=== PATIENT | female | born 1955 | race Caucasian/White ===

== ENCOUNTER → 2016-11-23 | Outpatient (CLI) | payer OTHER ==
--- NOTE | 2016-11-23 15:24 | US ---
EXAMINATION TYPE: US pelvic complete DATE OF EXAM: 11/23/2016 3:10 PM COMPARISON: NONE CLINICAL HISTORY: R10.2 Pelvic Pain. Pt states feeling pelvic pressure TECHNIQUE: Transabdominal (TA) Date of LMP: Pt states age 41's EXAM MEASUREMENTS: Uterus: 5.8 x 2.7 x 3.1 cm Endometrial Stripe: 0.3 cm Right Ovary: 2.0 x 1.3 x 1.2 cm Left Ovary: 2.4 x 1.5 x 1.1 cm TECHNOLOGIST IMPRESSION: wnl 1. Uterus: Anteverted Heterogeneous with small calcification at fundus= 0.9 x 0.7 x 0.5 cm 2. Endometrium: wnl 3. Right Ovary: wnl 4. Left Ovary: wnl 5. Bilateral Adnexa: wnl 6. Posterior cul-de-sac: wnl IMPRESSION: 1. Small calcification uterine fundus may reflect underlying leiomyomatous change.
--- NOTE | 2016-11-26 11:39 | MM ---
Reason for exam: screening (asymptomatic). Last mammogram was performed 1 year ago. History: Family history of breast cancer in paternal aunt. Physical Findings: A clinical breast exam by your physician is recommended on an annual basis and results should be correlated with mammographic findings. MG Screening Mammo w CAD Bilateral CC and MLO view(s) were taken. Prior study comparison: November 15, 2015, bilateral MG 3d screening mammo w/cad. June 02, 2014, bilateral MG screening mammo w CAD. The breast tissue is heterogeneously dense. This may lower the sensitivity of mammography. No significant changes when compared with prior studies. ASSESSMENT: Benign, BI-RAD 2 RECOMMENDATION: Routine screening mammogram of both breasts in 1 year.
== END | disposition home or self-care (01) ==
LOC: RADUSWWP 14:55
PROVIDERS: ATTEND Family Medicine
DX: Z12.31 Encounter for screening mammogram for malignant neoplasm of breast (principal); N85.8 Other specified noninflammatory disorders of uterus; R10.2 Pelvic and perineal pain
CPT/HCPCS: 76856; G0202

== ENCOUNTER → 2017-02-14 | Outpatient (CLI) | payer OTHER ==
--- NOTE | 2017-02-14 15:00 | XR ---
EXAMINATION TYPE: XR cervical spine comp DATE OF EXAM: 02/14/2017 2:53 PM COMPARISON: 03/06/2010 HISTORY: Pain. TECHNIQUE: Four views are submitted. FINDINGS: The odontoid is intact. There are no compression deformities. The prevertebral soft tissue structur es are within normal limits. Severe degenerative disc disease and hypertrophic changes C5-C6. Modera te changes C4-C5 and C6-C7. Soft tissue ossification posteriorly. Foraminal encroachment C5-C6 bilaterally and C4-C5 on the left. IMPRESSION: 1. Multilevel degenerative disc disease with severe changes C5-C6. Consider MRI follow-up.
--- NOTE | 2017-02-14 15:01 | XR ---
EXAMINATION TYPE: XR thoracic spine complete DATE OF EXAM: 02/14/2017 2:53 PM COMPARISON: NONE HISTORY: Back pain Alignment is anatomic. There is no compression deformities. There is moderate multilevel degenerativ e disc disease throughout the thoracic spine with the most marked changes involving the mid thoracic spine. Mild hypertrophic changes are seen. Surgical clips in the right upper quadrant of the abdomen. IMPRESSION: 1. Multilevel degenerative disc disease.
== END | disposition home or self-care (01) ==
LOC: RADXRMAIN 14:17
PROVIDERS: ATTEND Family Medicine
DX: M51.34 Other intervertebral disc degeneration, thoracic region (principal); M50.322 Other cervical disc degeneration at C5-C6 level
CPT/HCPCS: 72050; 72072

== ENCOUNTER → 2017-02-20 | Outpatient (CLI) | payer OTHER ==
[2017-02-20 11:05] LABS: Non-African American GFR(MDRD) >60 (>60 ml/min/1.73 sqM)
--- NOTE | 2017-02-20 15:20 | MR ---
MRI CERVICAL SPINE: CLINICAL HISTORY: Cervical disc degeneration per order. Neck pain for 6 months per patient. History o f slip and fall injury per patient. TECHNIQUE: Multiplanar, multisequence imaging of the cervical spine is performed without and with IV contrast, 14 cc of gadolinium was given intravenously. COMPARISON: Cervical spine x-ray February 14, 2017 FINDINGS: Sagittal images of the cervical spine show the craniocervical junction to appear within nor mal limits. The cervical and upper thoracic spinal cord is normal in course, caliber, and signal. V ertebral alignment is anatomic. The vertebral body heights are normal. There is fairly moderate disc space narrowing with mild to moderate spurring at C5-C6 level. Posterior disc herniation is seen at this level on sagittal images. There are larger posterior disc herniations noted at C4-C5, C6-C7 and T2-T3 levels on sagittal image 6. The bone marrow signal intensity is within normal limits. No suspi cious postcontrast enhancement is seen. Axial images show the C2-C3 level to appear within normal limits. Axial images at C3-C4 level show broad-based right paracentral disc protrusion with marginal spurring effacing anterolateral thecal sac and causing moderate right and mild left-sided neural foraminal na rrowing. Axial images at C4-C5 level show more prominent lobulated posterior disc protrusion effacing anterior thecal sac nearly up to ventral surface of spinal cord with posterior marginal spurring causing mode rate bilateral neural foraminal narrowing at this level. Axial images at C5-C6 level show broad-based posterior disc protrusion effacing anterior thecal sac a nd causing moderate to severe bilateral neural foraminal narrowing on axial image 23. Axial images at C6-C7 level show broad-based posterior disc protrusion effacing anterior thecal sac n early up to ventral surface of spinal cord on axial image 16, there is moderate to severe left and mo derate right-sided neural foraminal narrowing at this level identified. Axial images at C7-T1 level are felt within normal limits. There are small subcentimeter T2 hyperintense lesions scattered throughout the thyroid gland bilatera lly felt to reflect subcentimeter cystic nodules. IMPRESSION: Multilevel degenerative changes in the cervical spine as detailed above most prominent at C4-C5 through C6-C7 levels. Additional prominent disc herniation is noted at T2-T3 level on sagittal images.
== END ==
LOC: RADMRIMAIN 09:31
PROVIDERS: ATTEND Family Medicine
DX: M47.812 Spondylosis without myelopathy or radiculopathy, cervical region (principal)
CPT/HCPCS: 72156; 82565

== ENCOUNTER → 2018-09-01 | Outpatient (CLI) | payer OTHER ==
--- NOTE | 2018-09-01 16:00 | XR ---
EXAMINATION TYPE: XR chest 2V DATE OF EXAM: 09/01/2018 COMPARISON: Prior chest x-ray 02/07/2017 HISTORY: Chest pain, R07.81 TECHNIQUE: Frontal and lateral views of the chest are obtained. FINDINGS: There is no focal air space opacity, pleural effusion, or pneumothorax seen. The cardiac silhouette size is within normal limits. The osseous structures are intact. Surgical clips present in the upper abdomen. IMPRESSION: No acute cardiopulmonary process.
== END ==
LOC: RADXRMAIN 14:34
PROVIDERS: ATTEND Midwife
DX: R07.81 Pleurodynia (principal)
CPT/HCPCS: 71046

== ENCOUNTER → 2018-12-18 | Outpatient (CLI) | payer OTHER ==
[2018-12-18 10:44] LABS: MCH 30.2 pg (25.0-35.0); MCHC 32.6 g/dL (31.0-37.0); MCV 92.8 fL (80.0-100.0); Mean Platelet Volume 6.9; Platelet Count 332 k/uL (150-450); RBC 4.63 m/uL (3.80-5.40); RDW 13.3 % (11.5-15.5); WBC 10.5 k/uL (3.8-10.6)
[2018-12-18 10:57] LABS: Anion Gap 10 mmol/L; Blood Urea Nitrogen 17 mg/dL (7-17); Carbon Dioxide 24 mmol/L (22-30); Chloride 109 mmol/L (98-107); Potassium 4.6 mmol/L (3.5-5.1); Sodium 143 mmol/L (137-145)
== END | disposition home or self-care (01) ==
LOC: LABPAT 09:22
PROVIDERS: ATTEND Internal Medicine Interventional Cardiology
DX: Z01.812 Encounter for preprocedural laboratory examination (principal); I25.10 Atherosclerotic heart disease of native coronary artery without angina pectoris; I10 Essential (primary) hypertension
CPT/HCPCS: 80051; 82565; 84520; 85027

== ENCOUNTER → 2018-12-26 | Day surgery (SDC) | payer OTHER ==
[2018-12-23 14:55] VITALS: BMI 32.1
[~2018-12-26] MED LIST: ALPRAZolam 0.25 MG TAB PO PRN; ALPRAZolam 0.5 MG TAB PO PRN; ASPIRIN 325 MG TAB PO ONE; ATORVASTATIN 80 MG TAB PO ONE; HYDROmorphone 2 MG/ML 1 ML SYRINGE IVP ONE; IOPAMIDOL-370 150ML BTL INJ ONE; LIDOCAINE 1% INJ 10MG/ML (20 ML MDV) ONE; LIDOCAINE 1% INJ 10MG/ML (20 ML MDV) SQ ONE; NITROGLYCERIN 1000MCG/10ML SYRINGE INTRACORON ONE; NITROGLYCERIN SL TABS 0.4 MG TAB SUBLINGUAL PRN; ONDANSETRON 4 MG/2 ML VIAL IVP STA; ONDANSETRON 4 MG/2 ML VIAL ONE; SODIUM CHLORIDE 0.9% 1,000 ML IV SCH; SODIUM CHLORIDE 0.9% 1,000 ML in EMPTY BAG 1 BAG IV ONE; VERAPAMIL 2.5 MG/ML 2 ML AMP ONE; fentaNYL (PF) 50 MCG/ML 2 ML AMP IVP ONE; fentaNYL (PF) 50 MCG/ML 2 ML AMP ONE
[2018-12-26 08:20] VITALS: RESP 18; TEMP 98
[2018-12-26] MEDS: MIDAZOLAM 2 MG/2 ML VIAL IVP ONE ×3 (09:35→10:12)
--- NOTE | 2018-12-26 11:31 | CC ---
CARDIAC CATHETERIZATION REPORT DATE OF SERVICE: December 26, 2018 PERFORMING PHYSICIAN: Fede Cummings MD, life science teacher. PROCEDURE PERFORMED: 1. Selective right and left coronary angiogram. 2. Left heart catheterization. INDICATION: This is a pleasant 63-year-old female patient with a past medical history significant for coronary artery disease and known disease involving the left main as well as PDA branch of the RCA, was experiencing symptoms of chest discomfort concerning for angina. She was brought today to undergo a heart catheterization. APPROACH: Right common femoral artery. COMPLICATION: None. LEVEL OF SEDATION: Moderate with a sedation length of 22 minutes. PROCEDURE DESCRIPTION: After obtaining an informed consent, the patient was brought to cardiac laboratory helper. The right common femoral artery was cannulated using micropuncture technique and a micropuncture wire passed easily then I placed a 6-Chinese sheath in the right common femoral artery. After that I did selective right and left coronary angiogram using JR4 and JL3.5 catheters. Left heart catheterization was performed using 6-Chinese pigtail catheter. The procedure was completed without any complication. SELECTIVE CORONARY ANGIOGRAM: 1. The right coronary artery is a large caliber vessel and it is a dominant vessel. The proximal RCA has disease appeared to be in the mild range only. The mid RCA appeared to be angiographically normal. The RCA distally is normal and bifurcates into PDA and PLV branches. The PDA branch appeared to have a lesion in the range of 60%. Seems to be unchanged compared to before and the PLV branch appeared to be angiographically normal. 2. The left main:. The left main appeared to have mild disease only in the range of 30%. Bifurcates into left circumflex and left anterior descending artery. 3. The left circumflex is a large caliber vessel. It is a nondominant vessel. The proximal circumflex appeared to be normal and gives rise into a large OM branch which appeared to have mild disease only. The mid circumflex appeared to be angiographically normal and gives rise into a second OM branch which appeared to be angiographically normal and the circumflex continued after that as a small to medium caliber vessel in the AV groove. 4. The LAD: The proximal LAD appeared to have mild disease only. The mid LAD appeared to have a lesion in the range of 50%. This is by the bifurcation of a medium-sized diagonal branch. The LAD distally appeared to be angiographically normal. HEMODYNAMICS: The left ventricular end-diastolic pressure was 12 mmHg without significant gradient across the aortic valve. CONCLUSION: 1. Intermediate disease involving the PDA branch of the RCA. 2. Mild disease involving the left main coronary artery. 3. Intermediate disease involving the mid LAD. POSTPROCEDURE MANAGEMENT: 1. Risk factors modification. 2. Maximize medical treatment. 3. Follow up with the patient. PAUL / IJN: [id number] /
--- NOTE | 2018-12-26 11:37 | LTR ---
December 26, 2018 Re: Nasima Raomsid Dear Dr. Akbar: Ms. Nasima Salas underwent a heart catheterization today and that revealed intermediate disease involving the right coronary artery and left anterior descending artery. Giving the absence of any severe or critical disease, I did recommend maximized medical treatment and follow up with her. Thank you for allowing us to participate in her care and please do not hesitate to call if you have any question or concern. Sincerely, MD PAUL Holcomb / ROSELINEN: [id number] /
[2018-12-26 15:35] VITALS: BP 110/76; PULSE 62
== END ==
LOC: CATHCVL 07:50
PROVIDERS: ATTEND Internal Medicine Interventional Cardiology
DX: I25.110 Atherosclerotic heart disease of native coronary artery with unstable angina pectoris (principal); I65.23 Occlusion and stenosis of bilateral carotid arteries; I10 Essential (primary) hypertension; E78.5 Hyperlipidemia, unspecified; E78.00 Pure hypercholesterolemia, unspecified; I73.9 Peripheral vascular disease, unspecified; F17.210 Nicotine dependence, cigarettes, uncomplicated; Z79.82 Long term (current) use of aspirin; Z79.899 Other long term (current) drug therapy; Z88.2 Allergy status to sulfonamides; Z82.49 Family history of ischemic heart disease and other diseases of the circulatory system
CPT/HCPCS: 93458; C1894; C1769 ×2; C1760; J2250; J1170; J2405; J2001; J3010; Q9967

== ENCOUNTER → 2021-08-07 | Outpatient (CLI) | payer MEDICARE ==
--- NOTE | 2021-08-08 08:16 | MM ---
Reason for exam: clinical finding. Last mammogram was performed 4 years and 8 months ago. History: Patient is postmenopausal and is nulliparous. Family history of breast cancer in paternal aunt. Physical Findings: Nurse did not find any significant physical abnormalities on exam. MG 3D Diag Mammo W/Cad MARLENE Bilateral CC and MLO view(s) were taken. Prior study comparison: November 23, 2016, bilateral MG screening mammo w CAD. November 15, 2015, bilateral MG 3d screening mammo w/cad. June 02, 2014, bilateral MG screening mammo w CAD. The breast tissue is heterogeneously dense. This may lower the sensitivity of mammography. No significant new findings when compared with previous films. These results were verbally communicated with the patient and result sheet given to the patient on 08/07/21. ASSESSMENT: Negative, BI-RAD 1 RECOMMENDATION: Routine screening mammogram of both breasts in 1 year.
== END | disposition home or self-care (01) ==
LOC: RADMAMWWP 14:10
PROVIDERS: ATTEND Family Medicine
DX: R92.2 Inconclusive mammogram (principal); Z80.3 Family history of malignant neoplasm of breast
CPT/HCPCS: 77066; G0279; 77062

== ENCOUNTER → 2022-06-06 | Outpatient (CLI) | payer MEDICARE ==
--- NOTE | 2022-06-06 14:01 | US ---
EXAMINATION TYPE: US duplex aorta DATE OF EXAM: 06/06/2022 COMPARISON: NONE CLINICAL HISTORY: 66-year-old female Z13.6 Encounter for screening for cardiovascular d. Abdominal ao rtic aneurysm screening. Current smoker, hypertension, hyperlipidemia per patient. TECHNIQUE: Multiple sonographic images of the abdominal aorta are obtained. FINDINGS: EXAM MEASUREMENTS: Abdominal Aorta: Proximal: 2.7 x 2.2 cm. Mid: 2.2 x 1.8 cm. Distal: 1.6 x 1.9 cm. Bifurcation: 0.8 x 1.1 cm. Left: 1.2 x 1.3 cm. SWITCHMAN NOTES: Proximal aorta appears ectatic. Atherosclerotic changes seen. Appearance of plaque within distal aorta/iliacs. Exam is slightly limited due to gas. IMPRESSION: Atherosclerotic changes with ectasia of the upper abdominal aorta at 2.7 cm. No AAA seen.
== END | disposition home or self-care (01) ==
LOC: RADUSWWP 07:40
PROVIDERS: ATTEND Family Medicine
DX: Z13.6 Encounter for screening for cardiovascular disorders (principal); I77.811 Abdominal aortic ectasia
CPT/HCPCS: 93979

== ENCOUNTER → 2023-10-09 | Day surgery (SDC) | payer MEDICARE ==
[2023-10-07 14:47] VITALS: BMI 29.0
[~2023-10-09] MED LIST changes: -ALPRAZolam 0.25 MG TAB PO PRN; -ALPRAZolam 0.5 MG TAB PO PRN; -ASPIRIN 325 MG TAB PO ONE; -ATORVASTATIN 80 MG TAB PO ONE; -HYDROmorphone 2 MG/ML 1 ML SYRINGE IVP ONE; -IOPAMIDOL-370 150ML BTL INJ ONE; +LACTATED RINGERS 1,000 ML IV SCH; +LIDOCAINE 1% (10MG/ML) FOR IV START INTRADERMA PRN; -LIDOCAINE 1% INJ 10MG/ML (20 ML MDV) ONE; -LIDOCAINE 1% INJ 10MG/ML (20 ML MDV) SQ ONE; -NITROGLYCERIN 1000MCG/10ML SYRINGE INTRACORON ONE; -NITROGLYCERIN SL TABS 0.4 MG TAB SUBLINGUAL PRN; -ONDANSETRON 4 MG/2 ML VIAL IVP STA; -ONDANSETRON 4 MG/2 ML VIAL ONE; +PROPOFOL 10 MG/ML 20 ML VIAL IV ONE; -SODIUM CHLORIDE 0.9% 1,000 ML IV SCH; -SODIUM CHLORIDE 0.9% 1,000 ML in EMPTY BAG 1 BAG IV ONE; -VERAPAMIL 2.5 MG/ML 2 ML AMP ONE; -fentaNYL (PF) 50 MCG/ML 2 ML AMP IVP ONE; -fentaNYL (PF) 50 MCG/ML 2 ML AMP ONE
--- NOTE | 2023-10-09 04:42 | P.GSHP ---
History of Present Illness H&P Date: 10/09/23 CHIEF COMPLAINT: Colon screen HISTORY OF PRESENT ILLNESS: The patient is a 68-year-old female who presents for colon screen. Lower endoscopy was offered for further evaluation and management. PAST MEDICAL HISTORY: Please see list. PAST SURGICAL HISTORY: Please see list. MEDICATIONS: Please see list. ALLERGIES: Please see list. SOCIAL HISTORY: No illicit drug use FAMILY HISTORY: No reports of Crohn disease or ulcerative colitis. REVIEW OF ORGAN SYSTEMS: CONSTITUTIONAL: No reports of fevers or chills. PHYSICAL EXAM: VITAL SIGNS: Stable GENERAL: Well-developed pleasant in no acute distress. HEENT: No scleral icterus. Extraocular movements grossly intact. Moist buccal mucosa. NECK: Supple without lymphadenopathy. CHEST: Unlabored respirations. Equal bilateral excursions. CARDIOVASCULAR: Regular rate and rhythm. Distal 2+ pulses. ABDOMEN: Soft, nontender, nondistended. MUSCULOSKELETAL: No clubbing, cyanosis, or edema. ASSESSMENT: 1. Colon screen. PLAN: 1. Recommend proceeding with a lower endoscopy Past Medical History Past Medical History: Hyperlipidemia, Hypertension Additional Past Medical History / Comment(s): hx VIRAL MENINGITIS, POS. TB test -tx for 1 yr 1997, + POSTIVE COLOGARD History of Any Multi-Drug Resistant Organisms: None Reported Past Surgical History: Cholecystectomy, Heart Catheterization Additional Past Surgical History / Comment(s): MARLENE. CATARACTS , COLONOSCOPY Past Anesthesia/Blood Transfusion Reactions: No Reported Reaction Smoking Status: Former smoker - Past Family History Mother Additional Family Medical History / Comment(s): TUBERCULOSIS-ALSO PT'S Father Family Medical History: Cancer Additional Family Medical History / Comment(s): HX PROSTATE, BLADDER & LUNG CA- Medications and Allergies Home Medications Medication Instructions Recorded Confirmed Type ALPRAZolam [Xanax] 0.25 mg PO BID PRN 02/17/16 10/07/23 History Atorvastatin [Lipitor] 40 mg PO HS 10/07/23 10/07/23 History Metoprolol Succinate (ER) [Toprol 25 mg PO DAILY 10/07/23 10/07/23 History Xl] Allergies Allergy/AdvReac Type Severity Reaction Status Date / Time hydromorphone [From Dilaudid] AdvReac Hallucinati Verified 10/07/23 14:26 ons Sulfa (Sulfonamide AdvReac Upsets Verified 10/07/23 14:26 Antibiotics) Stomach
[2023-10-09 09:08] VITALS: TEMP 97.1
--- NOTE | 2023-10-09 10:48 | P.PCN ---
Date of Procedure: 10/09/23 Description of Procedure: PREOPERATIVE DIAGNOSIS: Colonoscopy screening Abnormal stool test, Cologuard POSTOPERATIVE DIAGNOSIS: Tubular adenoma sigmoid colon Tubular adenoma cecum Tubular adenoma descending colon Sigmoid diverticulosis Internal hemorrhoids, grade 2 OPERATION: Colonoscopy to the ileocecal valve and appendiceal orifice, cecum Colonoscopy with hot snare polypectomy SURGEON: Claritza Grubbs MD. ANESTHESIA: MAC. INDICATIONS: The patient is an 68-year-old female who presents with abnormal stool test, Cologuard. Benefits and risks were described and informed consent was obtained. DESCRIPTION OF PROCEDURE: The patient had undergone Sutab prep. The patient had been brought into the operating room and laid in the left lateral decubitus position. After adequate intravenous sedation, the rectum was examined with 2% lidocaine jelly. External hemorrhoids were encountered. The rectal tone was within normal limits. No lesions were palpated in the rectal vault. An Olympus colonoscope was advanced until the cecum, ileocecal valve and appendiceal orifice were clearly viewed. The prep was good. Sigmoid diverticulosis was encountered. Colonic polyps were found and removed. No evidence of focal colitis was found. Retroflexion of the scope demonstrated grade 3 internal hemorrhoids without active bleeding or inflammation. The colon was desufflated. The patient had tolerated the procedure well. Withdrawal time was over 6 minutes. FINDINGS: Aronchick preparation quality scale 2 (1-5) Internal hemorrhoids, grade 3 External hemorrhoids, grade 3. No arteriovenous malformations. Sigmoid diverticulosis Removal of 3 polyps: - Snare polypectomy 20 cm from the anal verge, 10 mm tubulovillous adenoma - Snare polypectomy sigmoid colon, 8 mm flat villous adenoma. - Snare polypectomy cecum, 5 mm flat villous adenoma No focal colitis. RECOMMENDATIONS: Given severity of tubular adenomas, recommend repeat colonoscopy 3 years, 2025 Plan - Discharge Summary Discharge Rx Participant: No New Discharge Prescriptions: Continue ALPRAZolam [Xanax] 0.25 mg PO BID PRN PRN Reason: Anxiety Metoprolol Succinate (ER) [Toprol XL] 25 mg PO DAILY Atorvastatin [Lipitor] 40 mg PO HS Discharge Medication List ALPRAZolam [Xanax] 0.25 mg PO BID PRN 02/17/16 [History] Atorvastatin [Lipitor] 40 mg PO HS 10/07/23 [History] Metoprolol Succinate (ER) [Toprol XL] 25 mg PO DAILY 10/07/23 [History] Follow up Appointment(s)/Referral(s): Claritza Grubbs MD [STAFF PHYSICIAN] - As Needed Patient Instructions/Handouts: Diverticulosis Diet (GEN), Diverticulosis (DC), Colorectal Polyps (GEN) Activity/Diet/Wound Care/Special Instructions: Repeat colonoscopy 3 years, 2025 Discharge Disposition: HOME SELF-CARE
[2023-10-09 11:05] VITALS: BP 161/72; PULSE 56
[2023-10-09 11:06] VITALS: RESP 13
== END | disposition home or self-care (01) ==
LOC: ORWHC2ENDO 08:32
PROVIDERS: ATTEND Surgery Plastic and Reconstructive Surgery
DX: D12.5 Benign neoplasm of sigmoid colon (principal); K57.30 Diverticulosis of large intestine without perforation or abscess without bleeding; K64.1 Second degree hemorrhoids; K64.2 Third degree hemorrhoids; I10 Essential (primary) hypertension; E78.5 Hyperlipidemia, unspecified; Z90.49 Acquired absence of other specified parts of digestive tract; Z98.890 Other specified postprocedural states; Z87.891 Personal history of nicotine dependence; Z80.1 Family history of malignant neoplasm of trachea, bronchus and lung; Z79.899 Other long term (current) drug therapy
CPT/HCPCS: 88305; 45385; J2704

== ENCOUNTER → 2024-01-10 | Outpatient (CLI) | payer MEDICARE ==
--- NOTE | 2024-01-10 11:13 | US ---
EXAMINATION TYPE: US venous doppler duplex LE LT DATE OF EXAM: 01/10/2024 11:05 AM COMPARISON: US 2014 CLINICAL INDICATION: Female, 68 years old with history of R22.42 LOCALIZED SWELLING LEFT LOWER LIMB; Left lower leg swelling SIDE PERFORMED: Left TECHNIQUE: The lower extremity deep venous system is examined utilizing real time linear array sonog christi with graded compression, doppler sonography and color-flow sonography. VESSELS IMAGED: Common Femoral Vein Deep Femoral Vein Greater Saphenous Vein * Femoral Vein Popliteal Vein Small Saphenous Vein * Proximal Calf Veins (* superficial vessels) Left Leg: Appears negative for DVT IMPRESSION: No evidence of deep venous thrombosis.
== END | disposition home or self-care (01) ==
LOC: RADUSWWP 10:30
PROVIDERS: ATTEND Family Medicine
DX: R22.42 Localized swelling, mass and lump, left lower limb (principal); M79.89 Other specified soft tissue disorders

== ENCOUNTER → 2025-03-04 | Outpatient (CLI) | payer MEDICARE ==
--- NOTE | 2025-03-04 11:13 | BD ---
EXAMINATION TYPE: Axial Bone Density DATE OF EXAM: 03/04/2025 CLINICAL HISTORY: 69 years old Female. ICD-10 CODE: M85.80 BONE DENS DISORDER , Additional History: Height: 61 Weight: 157 FRAX RISK QUESTIONS: History of Fracture in Adulthood: yes Secondary Osteoporosis: RISK FACTORS HISTORY OF: MEDICATIONS: EXAM MEASUREMENTS: Bone mineral densitometry was performed using the SFOX System. Bone mineral density as measured about the Lumbar spine is: ----- L1-L4(G/cm2): 0.941 T Score Values are as follows: ----- L1: -2.9 ----- L2: -3.2 ----- L3: -1.4 ----- L4: -0.8 ----- L1-L4: -2.0 Z Score Values are as follows: ----- L1: -1.5 ----- L2: -1.8 ----- L3: 0.0 ----- L4: 0.6 ----- L1-L4: -0.6 Bone mineral density has: Increased 3.0% since study of: 12-12-22 Bone mineral density about the R hip (g/cm2): 0.928 Bone mineral density about the L hip (g/cm2): 0.875 T Score values are as follows: -----R Neck: -1.2 -----L Neck: -1.8 -----R Total: -0.6 -----L Total: -1.1 Z Score values are as follows: -----R Neck: 0.3 -----L Neck: -0.3 -----R Total: 0.6 -----L Total: 0.2 Bone mineral density has: Decreased -3.6% since study of: 12-12-22 FRAX%s: The graph provided illustrates a 16.8% chance for a major osteoporotic fx and a 2.6% chance f or the hips probability for fx in 10 years time. IMPRESSION: Osteopenia (T Score between -2.5 and -1) remains present. There remains slightly increased risk of fracture and the patient may be considered for treatment. Re-Screen 2-5 years. NOTE: T-SCORE=SD OF THE YOUNG ADULT MEAN. [facility], , 03/04/2025 11:10 AM
--- NOTE | 2025-03-04 11:20 | MM ---
Reason for Exam: Screening (asymptomatic). Last mammogram was performed 1 year(s) and 2 month(s) ago. Patient History: Menarche at age 18. Patient has no children. Postmenopausal. Paternal aunt had breast cancer. Risk Values: Nu 5 year model risk: 1.7%. NCI Lifetime model risk: 5.6%. Prior Study Comparison: 08/07/2021 Bilateral Diagnostic Mammogram, [facility]. 12/12/2022 Bilateral MG 3D screening mammo w/cad, [facility]. 01/07/2024 Bilateral MG 3D screening mammo w/cad, [facility]. Tissue Density: The breasts are heterogeneously dense, which may obscure small masses. Findings: Analyzed By CAD. A few tiny benign-appearing round calcifications scattered throughout the bilateral breasts are redemonstrated. There is no suspicious group of microcalcifications or new suspicious mass in either breast. Overall Assessment: Benign, BI-RAD 2 Management: Screening Mammogram of both breasts in 1 year. . Patient should continue monthly self-breast exams. A clinical breast exam by your physician is recommended on an annual basis. This exam should not preclude additional follow-up of suspicious palpable abnormalities. Note on Nu scores and lifetime risk: 1. A Nu score greater than 3% is considered moderate risk. If this is the case, consider specialist referral to assess eligibility for a risk reducing agent. 2. If overall lifetime risk for the development of breast cancer is 20% or higher, the patient may qualify for future screening with alternating mammogram and breast MRI. [facility], , 03/04/2025 11:17 AM. Electronically signed and approved by: Los Murray M.D.
== END | disposition home or self-care (01) ==
LOC: RADBDWWP 09:55
PROVIDERS: ATTEND Family Medicine
DX: Z12.31 Encounter for screening mammogram for malignant neoplasm of breast (principal); M85.89 Other specified disorders of bone density and structure, multiple sites; R92.333 Mammographic heterogeneous density, bilateral breasts; Z78.0 Asymptomatic menopausal state; Z80.3 Family history of malignant neoplasm of breast
CPT/HCPCS: 77063; 77067; 77080